=== PATIENT | female | born 1950 | race Caucasian/White ===

== ENCOUNTER → 2020-03-19 13:44 | Outpatient (CLI) | payer OTHER, SELFPAY ==
--- NOTE | ~2020-03-19 | MM_ITS ---
EXAMINATION: MM screening [facility] BI w tracee HISTORY: Screening mammogram TECHNIQUE: Craniocaudal and mediolateral oblique 3-D tomosynthesis images were obtained and synthetic 2-D images were generated. CAD analysis was submitted and interpreted. COMPARISON: No prior mammogram is available for comparison at this institution. BREAST PARENCHYMAL COMPOSITION: The breasts are heterogeneously dense, which may obscure small masses . FINDINGS: There is no evidence of suspicious mass, calcification, or architectural distortion to sugg est malignancy in either breast. There has been no suspicious interval change. IMPRESSION: 1. No mammographic evidence of malignancy. 2. Recommend routine screening mammography in one year. BI-RADS Category 2: Benign finding(s). Reviewed, dictated and finalized at location A.
== END ==
PROVIDERS: Visit Provider Obstetrics & Gynecology
DX: Z12.31 Encounter for screening mammogram for malignant neoplasm of breast (principal)
CPT/HCPCS: 77063; 77067

== ENCOUNTER → 2021-03-21 10:03 | Outpatient (CLI) | payer OTHER, SELFPAY ==
--- NOTE | ~2021-03-21 | MM_ITS ---
EXAMINATION: MM screening [facility] BI w tracee HISTORY: Screening mammogram TECHNIQUE: Craniocaudal and mediolateral oblique 3-D tomosynthesis images were obtained and synthetic 2-D images were generated. CAD analysis was submitted and interpreted. COMPARISON: 03/19/2020, 12/16/2018, 12/03/2017 BREAST PARENCHYMAL COMPOSITION: The breasts are heterogeneously dense, which may obscure small masses . FINDINGS: There is no evidence of suspicious mass, calcification, or architectural distortion to sugg est malignancy in either breast. There has been no suspicious interval change. IMPRESSION: 1. No mammographic evidence of malignancy. 2. Recommend routine screening mammography in one year. BI-RADS Category 1: Negative Reviewed, dictated and finalized at location A.
== END ==
PROVIDERS: PCP Internal Medicine; Visit Provider Obstetrics & Gynecology
DX: Z12.31 Encounter for screening mammogram for malignant neoplasm of breast (principal)
CPT/HCPCS: 77063; 77067

== ENCOUNTER → 2022-05-29 13:41 | Outpatient (CLI) | payer OTHER, SELFPAY ==
--- NOTE | ~2022-05-29 | MM_ITS ---
EXAMINATION: MM screening [facility] BI w tracee HISTORY: Screening mammogram TECHNIQUE: Craniocaudal and mediolateral oblique 3-D tomosynthesis images were obtained and synthetic 2-D images were generated. CAD analysis was submitted and interpreted. COMPARISON: 03/21/2021, 03/19/2020, 12/06/2018 BREAST PARENCHYMAL COMPOSITION: The breasts are heterogeneously dense, which may obscure small masses . FINDINGS: No suspicious mass, calcification, or architectural distortion are identified in either kavin ast to suggest malignancy. There has been no suspicious interval change. IMPRESSION: 1. No mammographic evidence of malignancy. 2. Recommend routine screening mammography in one year. BI-RADS Category 1: Negative Reviewed, dictated and finalized at location A.
== END ==
PROVIDERS: PCP Internal Medicine; Visit Provider Obstetrics & Gynecology
DX: Z12.31 Encounter for screening mammogram for malignant neoplasm of breast (principal)
CPT/HCPCS: 77063; 77067

== ENCOUNTER 2022-07-07 13:17 | Outpatient (CLI) | payer OTHER, SELFPAY ==
--- NOTE | ~2022-07-07 | DEXA_ITS ---
Bone Density Report Name: BRITTANIE SKINNER Age: 72 Sex: Female Ethnicity: White Date of : 1950 Indication: postmenopausal; screening for osteoporosis; height loss; prior fracture; asthma or emphysema; Referring Provider: ELVA, ROMEO Silva Study: Bone densitometry was performed. Exam Date: July 07, 2022 Accession number: [id number] Bone Density: Region BMD T-score Z-score Classification AP Spine(L1-L4) 0.879 -1.5 0.7 Osteopenia Femoral Neck (Left) 0.580 -2.4 -0.6 Osteopenia Total Hip (Left) 0.716 -1.9 -0.3 Osteopenia Femoral Neck (Right) 0.597 -2.3 -0.4 Osteopenia Total Hip (Right) 0.779 -1.3 0.2 Osteopenia Total Hip Mean 0.747 -1.6 -0.1 Osteopenia World Health Organization criteria for BMD impression classify patients as: Normal (T-score at or above -1.0), Osteopenia (T-score between -1.0 and -2.5), or Osteoporosis (T-score at or below -2.5). 10-year Fracture Risk: FRAX not reported because: Treated for osteoporosis Clinical Information Provided by Patient: Has had a low trauma fracture Is being treated for osteoporosis Has used the following medications: Boniva (i.e. ibandronate), Vitamin D Has the following medical conditions: Asthma or Emphysema Patient maximum height was 66 Menopause Age: 51 Drinks caffeinated beverages Onset of menses at age 14 Number of children 1 Impression: The patient has low bone mass, based on the Left Femoral Neck T-score. The patient has risk factors, including: previous fracture. Discussion: It is important to ask patients whether they are taking their medications and to encourage continued and appropriate compliance with their osteoporosis therapies to reduce fracture risk. It is also important to review their risk factors and encourage appropriate calcium and vitamin D intakes, exercise, fall prevention and other lifestyle measures. Follow-Up: Consider a repeat BMD and Vertebral Fracture Assessment (VFA) exam in 2 years or sooner if medically necessary, to reassess this patient's status. Reported by: [facility] on 07/07/2022 1:46:00 PM. Reviewed, dictated and finalized at location ADebo ARREDONDO
== END 2022-07-07 13:18 | disposition home or self-care (01) ==
PROVIDERS: PCP Internal Medicine; Visit Provider Obstetrics & Gynecology
DX: Z78.0 Asymptomatic menopausal state (principal); M85.88 Other specified disorders of bone density and structure, other site; M85.852 Other specified disorders of bone density and structure, left thigh; M85.851 Other specified disorders of bone density and structure, right thigh
CPT/HCPCS: 77080

== ENCOUNTER → 2023-08-26 15:03 | Outpatient (CLI) | payer OTHER, SELFPAY ==
--- NOTE | ~2023-08-26 | MM_ITS ---
EXAMINATION: MM screening [facility] BI w tracee HISTORY: Screening mammogram TECHNIQUE: Craniocaudal and mediolateral oblique 3-D tomosynthesis images were obtained and synthetic 2-D images were generated. CAD analysis was submitted and interpreted. COMPARISON: 05/29/2022, 03/21/2021, 03/19/2020 BREAST PARENCHYMAL COMPOSITION: The breasts are heterogeneously dense, which may obscure small masses . FINDINGS: No suspicious mass, calcification, or architectural distortion are identified in either kavin ast to suggest malignancy. There has been no suspicious interval change. IMPRESSION: 1. No mammographic evidence of malignancy. 2. Recommend routine screening mammography in one year. BI-RADS Category 1: Negative Reviewed, dictated and finalized at location A. [employer]
== END ==
PROVIDERS: PCP Internal Medicine; Visit Provider Obstetrics & Gynecology
DX: Z12.31 Encounter for screening mammogram for malignant neoplasm of breast (principal)
CPT/HCPCS: 77063; 77067

== ENCOUNTER 2024-10-20 12:14 | Outpatient (CLI) | payer OTHER, SELFPAY ==
--- NOTE | ~2024-10-20 | DEXA_ITS ---
Bone Density Report Name: BRITTANIE SKINNER Age: 74 Sex: Female Ethnicity: White Date of : 1950 Indication: osteopenia; height loss; prior fracture; cancer; asthma or emphysema; Referring Provider: ELVA, ROMEO Silva Study: Bone densitometry was performed. Exam Date: October 20, 2024 Accession number: [id number] Bone Density: Region BMD T-score Z-score Classification AP Spine(L1-L4) 0.801 -2.2 0.1 Osteopenia Femoral Neck (Left) 0.522 -2.9 -0.9 Osteoporosis Total Hip (Left) 0.667 -2.3 -0.6 Osteopenia Femoral Neck (Right) 0.570 -2.5 -0.5 Osteoporosis Total Hip (Right) 0.714 -1.9 -0.2 Osteopenia Total Hip Mean 0.691 -2.1 -0.4 Osteopenia World Health Organization criteria for BMD impression classify patients as: Normal (T-score at or above -1.0), Osteopenia (T-score between -1.0 and -2.5), or Osteoporosis (T-score at or below -2.5). 10-year Fracture Risk: FRAX not reported because: Some T-score for Spine Total or Hip Total or Femoral Neck at or below -2.5 Previous Exams: Region Exam Age BMD T-score BMD Change BMD Change Date g/cm2 vs Baseline vs Previous AP Spine (L1-L4) 10/20/2024 74 0.801 -2.2 -0.078 (-8.9%) -0.078 (-8.9%) 07/07/2022 72 0.879 -1.5 Total Hip(Left) 10/20/2024 74 0.667 -2.3 -0.049 (-6.9%) -0.049 (-6.9%) 07/07/2022 72 0.716 -1.9 Total Hip(Right) 10/20/2024 74 0.714 -1.9 -0.064 (-8.3%) -0.064 (-8.3%) 07/07/2022 72 0.779 -1.3 *Denotes significance at 95% confidence level, LSC for AP Spine = 0.022 g/cm2, LSC for Total Hip = 0.027 g/cm2 Clinical Information Provided by Patient: Has had a low trauma fracture Has used the following medications: Boniva (i.e. ibandronate), Vitamin D Has the following medical conditions: Asthma or Emphysema, Cancer Patient maximum height was 66 Menopause Age: 51 Drinks caffeinated beverages Onset of menses at age 14 Number of children 1 Impression: The patient has established osteoporosis, based on the Left Femoral Neck T-score and the existence of a prior fracture. The patient has risk factors, including: previous fracture. The BMD for the AP Spine (L1-L4) decreased, changing by -8.9% since the last DXA exam. The BMD for the Total Hip(Left) decreased, changing by -6.9% since the last DXA exam. The BMD for the Total Hip(Right) decreased, changing by -8.3% since the last DXA exam. Discussion: HIGH RISK OF FRACTURE. BONE DENSITY IS UNDESIRABLY LOW AT ONE OR MORE SKELETAL SITES, CONSISTENT WITH POSTMENOPAUSAL OSTEOPOROSIS. This patient's lowest T-score, in a patient who has previously fractured, meets the World Health Organization's (WHO) criteria for severe osteoporosis. In untreated patients, the risk of osteoporotic fracture increases approximately two-fold for each 1.0 SD decrease in T-score. Low bone density is not the only risk factor for fracture; also consider factors such as patient's age, frailty or poor health, risk of falling, risk of injury, previous osteoporotic fracture, family history of osteoporosis, cigarette smoking, low body weight, etc. Not everyone with low bone mineral density has osteoporosis; osteomalacia and other metabolic bone disorders should also be considered. Patients who have osteoporosis should be evaluated for specific diseases and conditions (secondary causes) that may cause or contribute to bone loss. The [place] Association of Clinical Endocrinologists (AACE) and National Osteoporosis Foundation (NOF) recommend pharmacologic intervention for all postmenopausal women whose T-score is in this range. The patient should follow a healthful lifestyle (good nutrition with adequate calcium and vitamin D, and appropriate weight-bearing exercise). Follow-Up: Consider a repeat BMD and Vertebral Fracture Assessment (VFA) exam in 2 years or sooner if medically necessary, to reassess this patient's status. Reported by: CASSIUS on 10/20/2024 12:46:00 PM. Reviewed, dictated and finalized at location ADebo ARREDONDO
--- OUTSIDE RECORDS SUMMARY | 2024-10-20 12:44 | XMS_ITS | Continuity of Care Document ---
Author Organization [employer] Address [address] [place] [address] Phone Care Team Providers Care Sales Order Coordinator Name Role Phone Smitha Lockhart DO Unavailable Unavailable Allergies, Adverse Reactions, Alerts Substance Reaction Status Criticality No Known Allergies Active No Inform ation Medications Medication Instructions Dosage Effective Dates (start - stop) Status Comments CARVEDILOL 12.5 MG TABLET TAKE 1 TABLET BY MOUTH TWICE A DAY WITH FOOD - Active LOSARTAN POTASSIUM 100 MG TAB TAKE 1 TABLET BY MOUTH EVERY DAY - Active FLUTICASONE PROP 50 MCG SPRAY SPRAY 1 BY INTRANASAL ROUTE EVERY DAY IN EACH NOSTRIL TWICE DAILY NEEDED - Active azelastine 137 mcg (0.1 %) nasal spray spray 1 spray by intranasal route 2 times every day in each nostril 1 spray - Active pantoprazole 40 mg tablet,delayed release TAKE 1 TABLET BY MOUTH twice daily - Active ATORVASTATIN 20 MG TABLET TAKE 1 TABLET BY MOUTH EVERY DAY IN THE EVENING - Active Trelegy Ellipta 200 mcg-62.5 mcg-25 mcg powder for inhalation inhale 1 puff by inhalation route every day at the same time each day 1.00 puff - Active aspirin 81 mg tablet,delayed release take 1 tablet by oral route every day 81 MG - Active AMLODIPINE BESYLATE 10 MG TAB TAKE 1 TABLET BY MOUTH EVERY DAY - Active Ventolin HFA 90 mcg/actuation aerosol inhaler TAKE 2 PUFFS BY MOUTH EVERY 4 TO 6 HOURS NEEDED - Active Vitamin D3 25 mcg (1,000 unit) tablet take 1 by Oral route once 1 - Active Procedures Procedure Date CBC, INC PLATELETS AND DIFFERENTIAL COMPREHEN METABOLIC PANEL CMP PARATHYROID HORMONE (PTH) VITAMIN D, 25-HYDROXY FALL RISK ASSESSMENT DOC'D PRES/ABSN URINE INCON ASSESS Pt inelig neg scrn depres ROUTINE VENIPUNCTURE [place] OFFICE [id number]-RES-[id number] BODY MASS INDEX DOCD SYST BP GE 130 - 139MM HG DIAST BP < 80 MM HG CBC, INC PLATELETS AND DIFFERENTIAL COMPREHEN METABOLIC PANEL CMP CREATINE KINASE, TOTAL (CPK,CK) 024 LIPID PANEL THYROID STIMULATION HORMONE(TSH) 2023 ROUTINE VENIPUNCTURE IL OFFICE [id number]-[id number] BODY MASS INDEX DOCD SYST BP LT 130 MM HG DIAST BP < 80 MM HG BASIC METABOLIC PANEL(BMP) ROUTINE VENIPUNCTURE IL CBC, INC PLATELETS AND DIFFERENTIAL COMPREHEN METABOLIC PANEL CMP 4 CREATINE KINASE, TOTAL (CPK,CK) 024 LIPID PANEL PARATHYROID HORMONE (PTH) RBC SED RATE, AUTOMATED THYROID STIMULATION HORMONE(TSH) 2023 VITAMIN D, 25-HYDROXY URINALYSIS, DIPSTICK (UA) - Office Lab J ROUTINE VENIPUNCTURE IL OFFICE [id number]-[id number] BODY MASS INDEX DOCD SYST BP GE 130 - 139MM HG DIAST BP < 80 MM HG COVID-19, Amplified Probe Technique INFLUENZA DNA AMP PROBE OFFICE [id number] CBC, INC PLATELETS AND DIFFERENTIAL COMPREHEN METABOLIC PANEL CMP 3 CREATINE KINASE, TOTAL (CPK,CK) 023 LIPID PANEL PARATHYROID HORMONE (PTH) THYROID STIMULATION HORMONE(TSH) VITAMIN D, 25-HYDROXY FALL RISK ASSESSMENT DOC'D PRES/ABSN URINE INCON ASSESS Pt inelig neg scrn depres URINALYSIS, DIPSTICK (UA) - Office Lab D ROUTINE VENIPUNCTURE IL OFFICE [id number]-[id number] BODY MASS INDEX DOCD SYST BP LT 130 MM HG DIAST BP < 80 MM HG PNEUMOVAX ADM MEDICARE Pneumococcal Conjugate Vaccine (PCV20) D CBC, INC PLATELETS AND DIFFERENTIAL COMPREHEN METABOLIC PANEL CMP 3 CREATINE KINASE, TOTAL (CPK,CK) 023 LIPID PANEL PARATHYROID HORMONE (PTH) THYROID STIMULATION HORMONE(TSH) 2022 VITAMIN D, 25-HYDROXY ROUTINE VENIPUNCTURE IL OFFICE [id number]-[id number]-[id number] BODY MASS INDEX DOCD SYST BP LT 130 MM HG DIAST BP < 80 MM HG COVID-19, Amplified Probe Technique INFLUENZA, RAPID INFLUENZA B, RAPID - OFFICE LAB 022 Pt inelig neg scrn depres CBC, INC PLATELETS AND DIFFERENTIAL COMPREHEN METABOLIC PANEL CMP 2 LIPID PANEL THYROID STIMULATION HORMONE(TSH) 2021 VITAMIN D, 25-HYDROXY ROUTINE VENIPUNCTURE OFFICE [id number]-[id number] BODY MASS INDEX DOCD SYST BP LT 130 MM HG DIAST BP < 80 MM HG FORM CHARGE CBC, INC PLATELETS AND DIFFERENTIAL COMPREHEN METABOLIC PANEL CMP LIPID PANEL PARATHYROID HORMONE (PTH) THYROID STIMULATION HORMONE(TSH) 2021 URINALYSIS, REFLEX (UA) VITAMIN D, 25-HYDROXY ROUTINE VENIPUNCTURE OFFICE AMWHA-[id number]-[id number] BODY MASS INDEX DOCD SYST BP LT 130 MM HG DIAST BP < 80 MM HG OFFICE NUJON-EYM-MLUPMNDR BODY MASS INDEX [facility] INSTITUTED SYST BP LT 130 MM HG DIAST BP < 80 MM HG Pt inelig neg scrn donna OFFICE OYBMP-BWJ-[id number] BODY MASS INDEX [facility] INSTITUT[facility] SYST BP GE 130 - 139MM HG DIAST BP < 80 MM HG FORM CHARGE Pt inelig neg scrn depres CBC, INC PLATELETS AND DIFFERENTIAL COMPREHEN METABOLIC PANEL CMP THYROID STIMULATION HORMONE(TSH) 2020 ROUTINE VENIPUNCTURE Chest Xray, 2 Views PULSE OXIMETRY, MULTIPLE EKG (ELECTROCARDIOGRAM) OFFICE [id number] BODY MASS INDEX [facility] INSTIT[facility] SYST BP LT 130 MM HG DIAST BP < 80 MM HG Pt inelig neg scrn donna CBC, INC PLATELETS AND DIFFERENTIAL COMPREHEN METABOLIC PANEL CMP 1 LIPID PANEL THYROID STIMULATION HORMONE(TSH) 2020 VITAMIN D, 25-HYDROXY ROUTINE VENIPUNCTURE OFFICE [id number]-SDP-[id number] BODY MASS INDEX DOCD SYST BP GE 130 - 139MM HG DIAST BP < 80 MM HG Pt inelig neg scrn depres OFFICE QAVLE-LUO-VOKKPEVT BODY MASS INDEX DOCD SYST BP GE 130 - 139MM HG DIAST BP < 80 MM HG CBC, INC PLATELETS AND DIFFERENTIAL COMPREHEN METABOLIC PANEL [facility] 0 CREATINE KINASE, TOTAL (CPK,CK) 020 HEMOGLOBIN A1C HGA1C, GLYCO LIPID PANEL THYROID STIMULATION HORMONE(TSH) 2019 ROUTINE VENIPUNCTURE Admin influenza virus vac FLU VACC PRSV FREE INC ANTIG OFFICE [id number]-[id number] BODY MASS INDEX DOCD SYST BP GE 130 - 139MM HG DIAST BP < 80 MM HG FALL RISK ASSESSMENT DOC'D PRES/ABSN URINE INCON ASSESS CBC, INC PLATELETS AND DIFFERENTIAL COMPREHEN METABOLIC PANEL [facility] 0 CREATINE KINASE, TOTAL (CPK,CK) 020 LIPID PANEL PARATHYROID HORMONE (PTH) THYROID STIMULATION HORMONE(TSH) 2019 ROUTINE VENIPUNCTURE OFFICE [id number]-ABY-MGYGIJGC BODY MASS INDEX DOCD SYST BP LT 130 MM HG DIAST BP < 80 MM HG HEMOGLOBIN A1C HGA1C, GLYCO Admin influenza virus vac FLU VACC PRSV FREE INC ANTIG OFFICE [id number]-[id number] BODY MASS INDEX DOCD SYST BP GE 130 - 139MM HG DIAST BP < 80 MM HG Pt inelig neg scrn depres CBC, INC PLATELETS AND DIFFERENTIAL COMPREHEN METABOLIC PANEL CMP 9 THYROID STIMULATION HORMONE(TSH) 2018 ROUTINE VENIPUNCTURE OFFICE GNAVY-[id number]-[id number] BODY MASS INDEX DOCD SYST BP >= 140 MM HG6 IT DIAST BP < 80 MM HG Advance Directives Directive Yes / No Effective Date File Name No Information Encounters Encounter Description Practice Location Reason(s) For Visit Diagnoses Date Provider Providers Copied on Encounter [employer] [facility], [address], [place], [place], [address] , tel: [phone] [employer] [facility] No Information 5 Chantelle Bone. [address] [place], [place], [id number] , [place]. tel: [phone] [employer], [address], [place], [place], [address] , [place] tel: [phone] [facility] No Information 5 Yahaira Rose. [address], [id number] , [place]. tel: [phone] Referring Provider: Reji Barbosa, [facility] [place], [address]. tel:[phone] OFFICE ZTTZW[facility]AXI[facility]NR [facility] [address], [place], [place], [address] , [place] tel: [phone] [employer] [facility] 4 month (chief complaint)C hronic Conditions (chief complaint) Essential (primary) hypertensionChroni c obstructive pulmonary disease, unspecifiedChronic respiratory failure with hypoxiaAtheroscler osis of aortaGastro-esopha geal reflux disease without esophagitisOther nonthrombocytopeni c purpuraOther hyperparathyroidis mHyperlipidemia, unspecifiedAge-rel ated osteoporosis without current pathological fractureVitreous degeneration, bilateral 5 Familia Mendoza. [address] [place] [address], [address], [place]. tel: [phone] Mirlande Hylton.Refer ring Provider: Smitha Walton, [address] [place] [address], [address] . tel:[phone] [facility], [address], [place], [place], [address] , [place] tel: [phone] [facility] No Information 5 Chantelle Bone. [address] [place] [address], [id number] , [place]. tel: [phone] [facility], [address], [place], [place], [address] , [place] tel: [phone] [facility] No Information 5 Vaz Ignacia. [address] [place] [address], [id number] , [place]. tel: [phone] [facility], [address], [place], [place], [address] , [place] tel: [phone] [facility] No Information 4 [facility] [address] [place] [address], [address], [place]. tel: [phone] [facility], [address], [place], [place], [address] , [place] tel: [phone] [facility] No Information 4 Yahaira Salinasn. [address], [id number] , [place]. tel: [phone] Referring Provider: Smitha Walton, [address] [place] [address], [address] . tel:[phone] OFFICE MDRCK-MRO-SY [facility], [address], [place], [place], [address] , [place] tel: [phone] [facility] 3 month appt (chief complaint)C hronic Conditions (chief complaint) Chronic obstructive pulmonary disease, unspecifiedNicotin e dependence, cigarettes, in remissionAngina pectoris, unspecifiedGastro- esophageal reflux disease without esophagitis 4 Chantelle Bone. [address] [place] [address], [id number] , [place]. tel: [phone] Specialist : Mirlande Hylton, [place], [address]. tel:[phone] erring Provider: Smitha Walton, [address] [place] [address], [address] . tel:[phone] [facility], [address], [place], [place], [address] , tel: [phone] [facility] No Information 4 Chantelle Bone. [address] [place] [address], [id number] , [place]. tel: [phone] [facility], [address], [place], [place], [address] , [place] tel: [phone] [facility] No Information 4 Yahaira Salinasn. [address], [id number] , [place]. tel: [phone] Referring Provider: Smitha Walton, [address] [place] [address], [address] . tel:[phone] [facility], [address], [place], [place], [address] , [place] tel: [phone] [facility] Essential (primary) hypertensionAthero sclerosis of aorta 4 Chantelle Bone. [address] [place] [address], [id number] , [place]. tel: [phone] Referring Provider: Smitha Walton, [address] [place] [address], [address] . tel:[phone] [facility], [address], [place], [place], [address] , [place] tel: [phone] [facility] No Information 4 Yahaira Rose. [address] [address], [place], [place], [address] , [place]. tel: [phone] Referring Provider: Simtha Walton, [address] [place] [address], [address] . tel:[phone] OFFICE SQKES-OKU-RX [facility], [address], [place], [place], [address] , [place] tel: [phone] [facility] 6 month appt (chief complaint)c hronic conditions (chief complaint)C hronic Conditions (chief complaint) Chronic obstructive pulmonary disease, unspecifiedNicotin e dependence, cigarettes, in remissionGastro-es ophageal reflux disease without esophagitisChronic respiratory failure with hypoxiaOther hyperparathyroidis mAtherosclerosis of aortaOther nonthrombocytopeni c purpuraEssential (primary) hypertensionAngina pectoris, unspecifiedEncount er for screening for malignant neoplasm of colonLeukocytes in urine 4 Chantelle Bone. [address] [place] [address], [id number] , [place]. tel: [phone] Referring Provider: Smitha Walton, [address] [place] [address], [address] . tel:[phone] [facility], [address], [place], [place], [address] , [place] tel: [phone] [facility] No Information 4 Chantelle Bone. [address] [place] [address], [id number] , [place]. tel: [phone] [facility], [address], [place], [place], [address] , tel: [phone] [facility] chills and nasal drip (chief complaint) Nasal congestion 3 Milind Beth. [address] [place] [address], [id number] , . tel: [phone] Referring Provider: Smitha Walton, [address] [place] [address], [address] . tel:[phone] [facility], [address], [place], [place], [address] , [place] tel: [phone] [facility] No Information 3 Yahairarobert Salinasn. [address], [id number] , . tel: [phone] Referring Provider: Smitha Walton, [address] [place] [address], [address] . tel:[phone] OFFICE RRCVK-OYB-HI [facility], [address], [place], [place], [address] , tel: [phone] [facility] 6 month appt (chief complaint)C hronic Conditions (chief complaint) Gastro-esophageal reflux disease without esophagitisChronic respiratory failure with hypoxiaChronic obstructive pulmonary disease, unspecifiedNicotin e dependence, cigarettes, in remission 3 Chantelle Bone. [address] [place] [address], [id number] , [place]. tel: [phone] Referring Provider: Smitha Walton, [address] [place] [address], [address] . tel:[phone] [facility], [address], [place], [place], [address] , [place] tel: [phone] [facility] No Information 3 Chantelle Bone. [address] [place] [address], [id number] , [place]. tel: [phone] [facility], [address], [place], [place], [address] , tel: [phone] [facility] Cataract, unspecified cataract type, unspecified laterality 3 Chantelle Bone. [address] [place] [address], [id number] , [place]. tel: [phone] [facility], [address], [place], [place], [address] , tel: [phone] [facility] No Information 3 Yahaira Salinasn. [address] [address], [place], [place], [address] , . tel: [phone] Referring Provider: Smitha Walton, [address] [place] [address], [address] . tel:[phone] OFFICE SHJYY-QXC-JB [facility], [address], [place], [place], [address] , tel: [phone] [facility] Patient encounter (chief complaint)C hronic Conditions (chief complaint) Essential hypertensionChroni c obstructive pulmonary disease, unspecifiedChronic respiratory failure with hypoxiaAtheroscler osis of aortaOther hyperparathyroidis mOther nonthrombocytopeni c purpuraGastroesoph ageal reflux disease without esophagitis 3 Chantelle Bone. [address] [place] [address], [id number] , [place]. tel: [phone] Referring Provider: Smitha Walton, [address] [place] [address], [address] . tel:[phone] [facility], [address], [place], [place], [address] , tel: [phone] [facility] No Information 3 Chantelle Bone. [address] [place] [address], [id number] , [place]. tel: [phone] [facility], [address], [place], [place], [address] , tel: [phone] [facility] Patient encounter (chief complaint) Acute coughSinus drainage 2 Chantelle Bone. [address] [place] [address], [id number] , . tel: [phone] Referring Provider: Smitha Walton, [address] [place] [address], [place], [address] . tel:[phone] OFFICE RBKHU-YYM-YI [facility], [address], [place], [place], [address] , tel: [phone] [facility] Chronic Conditions (chief complaint) Body mass index [BMI] 25.0-25.9, adultHyperparathyr oidismHyperlipidem ia, unspecified hyperlipidemia typeEssential hypertensionChroni c obstructive pulmonary disease, unspecifiedChronic respiratory failure with hypoxiaPostmenopau sarah osteoporosis 2 Milind Beth. [address] [place] [address], [id number] , [place]. tel: [phone] Referring Provider: Smitha Walton, [address] [place] [address], [address] . tel:[phone] [facility], [address], [place], [place], [address] , tel: [phone] [facility] No Information 2 Chantelle Bone. [address] [place] [address], [id number] , [place]. tel: [phone] Referring Provider: Smitha Walton, [address] [place] [address], [address] . tel:[phone] OFFICE RLFPC-HND-EJ [facility], [address], [place], [place], [address] , tel: [phone] [facility] 3-4 month (chief complaint)C hronic Conditions (chief complaint) Body mass index [BMI] 25.0-25.9, adultHyperparathyr oidismEssential hypertensionChroni c obstructive pulmonary disease, unspecifiedChronic respiratory failure with hypoxiaHyperlipide gee, unspecified hyperlipidemia type 2 Familia Mendoza. [address] [place] [address], [place], [address], . tel: [phone] Referring Provider: Smitha Walton, [address] [place] [address], [place], [address] . tel:[phone] [facility]ICE [facility], [address], [place], [place], [address] , tel: [phone] [facility] Chronic Conditions (chief complaint) Essential hypertensionChroni c obstructive pulmonary disease, unspecifiedGastroe sophageal reflux disease without esophagitisAortic atherosclerosisHyp erlipidemia, unspecified hyperlipidemia typeHyperparathyro idismNicotine dependence, cigarettes, in remissionChronic respiratory failure with hypoxiaOther nonthrombocytopeni c purpuraBody mass index [BMI] 25.0-25.9, adult 2 Chantelle Bone. [address] [place] [address], [id number] , [place]. tel: [phone] Referring Provider: Smitha Walton, [address] [place] [address], [place], [address] . tel:[phone] OFFICE [facility]WH[facility], [address], [place], [place], [address] , tel: [phone] [facility] Chronic Conditions (chief complaint) Body mass index (BMI) 25.0-25.9, adultChronic obstructive pulmonary disease, unspecifiedEssenti al hypertension 1 Kaleigh العلي. [address] [place] [address], [id number] , [place]. tel: [phone] Referring Provider: Smitha Walton, [address] [place], [address] . tel:[phone] [facility], [address], [place], [place], [address] , tel: [phone] [facility] No Information 1 Chantelle Bone. [address] [place] [address], [id number] , . tel: [phone] Referring Provider: Smitha Walton, [address] [place] [address], [address] . tel:[phone] OFFICE QONPF-QQS-GE [facility], [address], [place], [place], [address] , tel: [phone] [facility] Chronic Conditions (chief complaint) Chronic obstructive pulmonary disease, unspecifiedNicotin e dependence, cigarettes, in remissionEssential (primary) hypertensionGastro -esophageal reflux disease without esophagitisOther chest painShortness of breathBody mass index (BMI) 25.0-25.9, adult 1 Chantelle Bone. [address] [place] [address], [id number] , . tel: [phone] Referring Provider: Smitha Walton, [address] [place] [address], [address] . tel:[phone] OFFICE XVKRV-WBE-ZP [facility], [address], [place], [place], [address] , tel: [phone] [facility] Chronic Conditions (chief complaint) Body mass index (BMI) 26.0-26.9, adultEssential hypertensionHyperl ipidemia, unspecified hyperlipidemia typeChronic obstructive pulmonary disease, unspecifiedHyperpa rathyroidismAortic atherosclerosisGas troesophageal reflux disease without esophagitis 1 Kaleigh العلي. [address] [place] [address], [id number] , . tel: [phone] Referring Provider: Smitha Walton, [address] [place] [address], [address] . tel: OFFICE AHJSZ-SEF-NW [facility], [address], [place], [place], [address] , tel: [phone] [facility] Chronic Conditions (chief complaint) Allergic rhinitis, unspecified seasonality, unspecified triggerChronic obstructive pulmonary disease, unspecifiedHyperli pidemia, unspecified hyperlipidemia typeEssential hypertensionShortn ess of breathBody mass index (BMI) 25.0-25.9, adult 0 Chantelle Bone. [address] [place] [address], [id number] , [place]. tel: [phone] Referring Provider: Smitha Walton, [address] [place] [address], [address] . tel: [facility], [address], [place], [place], [address] , tel: [phone] [facility] No Information Apr- 0 Chantelle Bone. [address] [place] [address], [id number] , [place]. tel: [phone] Referring Provider: Smitha Walton, [address] [place] [address], [address] . tel: OFFICE EAAZZ-QGF-PK [facility], [address], [place], [place], [address] , tel: [phone] [facility] Chronic Conditions (chief complaint) Chronic obstructive pulmonary disease, unspecifiedAllergi c rhinitis, unspecified seasonality, unspecified trigger Jean Claude- 0 Milind Beth. [address] [place] [address], [id number] , [place]. tel: [phone] Referring Provider: Smitha Walton, [address] [place] [address], [address] . tel: OFFICE BGSKX[facility]VAV[facility], [address], [place], [place], [address] , tel: [phone] [facility] Chronic Conditions (chief complaint) Aortic atherosclerosisChr onic obstructive pulmonary disease, unspecifiedEssenti al hypertensionSenile purpuraBody mass index (BMI) 25.0-25.9, adultHyperparathyr oidismHyperlipidem ia, unspecified hyperlipidemia typeIFG (impaired fasting glucose) 0 Familia Gaylin. [address] [place] [address], [place], [address], [place]. tel: [phone] Referring Provider: Smitha Walton, [address] [place] [address], [address] . tel:[phone] [facility], [address], [place], [place], [address] , tel: [phone] [facility] Neoplasm of uncertain behavior 0 Chantelle Bone. [address] [place] [address], [id number] , [place]. tel: [phone] [facility], [address], [place], [place], [address] , tel: [phone] [facility] Plantar fascial fibromatosis 9 Chantelle Bone. [address] [place] [address], [id number] , [place]. tel: [phone] OFFICE [facility], [address], [place], [place], [address] , tel: [phone] [facility] Chronic Conditions (chief complaint) Body mass index (BMI) 26.0-26.9, adultHypertension, unspecified typeGeneralized anxiety disorder 9 Kaleigh العلي. [address] [place] [address], [id number] , [place]. tel: [phone] Referring Provider: Smitha Walton, [address] [place] [address], [place], [address] . tel:[phone] OFFICE ZOQUQ-NPS-KL [facility], [address], [place], [place], [address] , tel: [phone] [facility] Chronic Conditions (chief complaint) COPD (chronic obstructive pulmonary disease) with chronic bronchitisUncontro lled hypertensionPlanta r fasciitis, bilateralPost-hazel pausal osteoporosisBody mass index (BMI) 26.0-26.9, adult Sep-0 9 Chantelle Hyatta. [address] [place] [address], [id number] , [place]. tel: [phone] Referring Provider: Smitha Walton, [address] [place] [address], [address] . tel:[phone] [facility], [address], [place], [place], [address] , tel: [phone] [facility] Screen for colon cancer 9 Chantellejorge Hyatta. [address] [place] [address], [id number] , [place]. tel: [phone] [facility], [address], [place], [place], [address] , [place] tel: [phone] [facility] Internal Medicine Age-related nuclear cataract, unspecified laterality 9 Chantelle Laura. [address] [place] [address], [id number] , [place]. tel: [phone] [facility], [address], [place], [place], [address] , [place] tel: [phone] [facility] Internal Medicine Pulmonary nodule 9 Chantelle Smitha. [address] [place] [address], [id number] , [place]. tel: [phone] [facility], [address], [place], [place], [address] , [place] tel: [phone] [facility] Internal Medicine COPD (chronic obstructive pulmonary disease) with chronic bronchitisPost-men opausal osteoporosisPulmon harsh nodule, leftTobacco dependence in remissionEssential hypertensionSenile purpuraAortic atherosclerosisSki n lesionArthralgia, unspecified jointBody mass index (BMI) 26.0-26.9, adult 6-201 9 [place] Laura. [address] [place] [address], [place], [place], [id number] , [place]. tel: [phone] Referring Provider: Smitha Walton, [address] [place] [address], [place], [address] . tel:[phone] [facility], [address], [place], [place], [address] , tel: [phone] [facility] Internal Medicine COPD (chronic obstructive pulmonary disease) with chronic bronchitisPost-men opausal osteoporosisPulmon harsh nodule, leftTobacco dependence in remission 8 Chantelle Bone. [address] [place] [address], [place], [place], [id number] , [place]. tel: [phone] Referring Provider: Smitha Walton, [address] [place] [address], [place], [address] . tel:[phone] [facility], [address], [place], [place], [address] , [place] tel: [phone] [facility] Internal Medicine Pulmonary nodule, left 8 Chantelle Bone. [address] [place] [address], [place], [place], [id number] , [place]. tel: [phone] [facility], [address], [place], [place], [address] , [place] tel: [phone] [facility] Internal Medicine Essential hypertensionBody mass index (BMI) 26.0-26.9, adult 2-201 8 Milind Beth. [address] [place] [address], [place], [place], [id number] , [place]. tel: [phone] Referring Provider: Smitha Walton, [address] [place] [address], [place], [address] . tel:[phone] [facility], [address], [place], [place], [address] , tel: [phone] [facility] Internal Medicine Body mass index (BMI) 26.0-26.9, adultCOPD (chronic obstructive pulmonary disease) with chronic bronchitisPulmonar y nodule, leftEssential hypertensionHistor y of basal cell cancerSenile purpuraImpaired fasting glucoseLeukocytes in urine 8 [facility]. [address] [place] [address], [place], [address], [place]. tel: [phone] Referring Provider: Smitha Walton, [address] [place] [address], [place], [address] . tel:[phone] [facility], [address], [place], [place], [address] , [place] tel: [phone] [facility] Internal Medicine Post-menopause 8 Chantelle Bone. [address] [place] [address], [place], [place], [id number] , [place]. tel: [phone] [facility], [address], [place], [place], [address] , [place] tel: [phone] [facility] Internal Medicine Aortic atherosclerosisCOP D (chronic obstructive pulmonary disease) with chronic bronchitisPulmonar y nodule, leftEssential hypertensionOsteop enia, unspecified location 8 [facility]. [address] [place] [address], [place], [address], [place]. tel: [phone] Referring Provider: Smitha Walton, [address] [place] [address], [place], [address] . tel:[phone] [facility], [address], [place], [place], [address] , [place] tel: [phone] [facility] Internal Medicine Essential hypertensionBody mass index (BMI) 25.0-25.9, adult Feb-2 3-201 8 Familia Mendoza. [address] [place] [address], [place], [address], [place]. tel: [phone] Referring Provider: Smitha Walton, [address] [place] [address], [place], [address] . tel:[phone] [facility], [address], [place], [place], [address] , tel: [phone] [facility] Internal Medicine COPD (chronic obstructive pulmonary disease) with chronic bronchitisHistory of basal cell cancerPulmonary nodule, leftTobacco dependence in remissionEssential hypertensionOsteop orosis screening 2 7 Chantelle Bone. [address] [place] [address], [place], [place], [address] , [place]. tel: [phone] Referring Provider: Smitha Walton, [address] [place] [address], [place], [address] . tel:[phone] [facility], [address], [place], [place], [address] , [place] tel: [phone] [facility] Internal Medicine Pulmonary nodule, left 8-201 7 Familia Mendoza. [address] [place] [address], [place], [address], [place]. tel: [phone] [facility], [address], [place], [place], [address] , [place] tel: [phone] [facility] Internal Medicine History of basal cell cancer 201 7 Chantelle Bone. [address] [place] [address], [place], [place], [address] , [place]. tel: [phone] [facility], [address], [place], [place], [address] , [place] tel: [phone] [facility] Internal Medicine COPD (chronic obstructive pulmonary disease) with chronic bronchitisTobacco dependence in remission 7-201 7 Chantellejorge Bone. [address] [place] [address], [place], [address] , [place]. tel: [phone] Referring Provider: Smitha Walton, [address] [place] [address], [address] . tel:[phone] [facility], [address], [place], [place], [address] , [place] tel: [phone] [facility] Internal Medicine History of pneumonia 2-201 7 Memphisjorge Bone. [address] [place] [address], [id number] , [place]. tel: [phone] [facility], [address], [place], [place], [address] , [place] tel: [phone] [facility] Internal Medicine COPD with exacerbation 7-201 7 Chantelle Bone. [address] [place] [address], [id number] , [place]. tel: [phone] [facility], [address], [place], [place], [address] , [place] tel: [phone] [facility] Internal Medicine COPD with exacerbation December-0 3-201 7 Chantelle Bone. [address] [place] [address], [id number] , [place]. tel: [phone] [facility], [address], [place], [place], [address] , [place] tel: [phone] [facility] Internal Medicine COPD with exacerbationTobacc o dependenceHistory of pneumoniaPulmonary noduleRenal massHyperglycemiaE ssential hypertensionScreen ing mammogram, encounter forPrediabetes 8201 7 [facility]. [address] [place] [address], [address], [place]. tel: [phone] Referring Provider: Smitha Walton, [address] [place] [address], [address] . tel:[phone] [facility], [address], [place], [place], [address] , [place] tel: [phone] [facility] Internal Medicine Chronic obstructive pulmonary disease, unspecified 7 Chantelle Bone. [address] [place] [address], [id number] , [place]. tel: [phone] [facility], [address], [place], [place], [address] , tel: [phone] [facility] Internal Medicine Chronic obstructive pulmonary disease, unspecified 7 Chantelle Bone. [address] [place] [address], [id number] , [place]. tel: [phone] [facility], [address], [place], [place], [address] , tel: [phone] [facility] History of basal cell cancer Chantelle Bone. [address] [place] [address], [id number] , [place]. tel: [phone] [facility], [address], [place], [place], [address] , tel: [phone] [facility] Tobacco dependence Chantelle Bone. [address] [place] [address], [id number] , [place]. tel: [phone] Referring Provider: Smitha Walton, [address] [place] [address], [address] . tel:[phone] [facility], [address], [place], [place], [address] , tel: [phone] [facility] COPD (chronic obstructive pulmonary disease) with chronic bronchitisAortic atherosclerosisTob acco dependence syndromeGeneralize d anxiety disorderEssential hypertensionHyperp arathyroidismShort ness of breath on exertion 7 Chantelle Bone. [address] [place] [address], [id number] , [place]. tel: [phone] Referring Provider: Smitha Walton, [address] [place] [address], [address] . tel: [facility], [address], [place], [place], [address] , [place] tel: [phone] [facility] Essential hypertensionGenera lized anxiety disorderCOPD (chronic obstructive pulmonary disease) with chronic bronchitisTobacco dependence syndromeAortic atherosclerosisEnc ounter for immunization 0201 6 Familia Mendoza. [address] [place] [address], [place], [address], [place]. tel: [phone] Referring Provider: Smitha Walton, [address] [place] [address], [address] . tel: [facility], [address], [place], [place], [address] , tel: [phone] [facility] Essential hypertension with goal blood pressure less than 130/80COPD (chronic obstructive pulmonary disease) with chronic bronchitisHyperpar athyroidismTobacco dependence syndrome 6 Chantelle Bone. [address] [place] [address], [place], [place], [address] , [place]. tel: [phone] Referring Provider: Smitha Walton, [address] [place] [address], [address] . tel: [facility], [address], [place], [place], [address] , [place] tel: [phone] [facility] Unspecified disorder of skin and subcutaneous tissue 6 Chantelle Bone. [address] [place] [address], [place], [place], [address] , [place]. tel: [phone] [facility], [address], [place], [place], [address] , [place] tel: [phone] [facility] Hypercalcemia 6 Chantelle Bone. [address] [place] [address], [place], [place], [address] , [place]. tel: [phone] [facility], [address], [place], [place], [address] , [place] tel: [phone] [facility] Essential hypertension with goal blood pressure less than 130/80 3 6 Chantelle Bone. [address] [place] [address], [id number] , . tel: [phone] Referring Provider: Smitha Walton, [address] [place] [address], [address] . tel:[phone] [facility], [address], [place], [place], [address] , tel: [phone] [facility] Essential hypertension with goal blood pressure less than 130/80COPD (chronic obstructive pulmonary disease) with chronic bronchitisWeight lossTobacco dependence syndrome 0 6 Chantelle Bone. [address] [place] [address], [id number] , . tel: [phone] Referring Provider: Smitha Walton, [address] [place] [address], [address] . tel:[phone] [facility], [address], [place], [place], [address] , tel: [phone] [facility] Essential hypertensionOsteop eniaGeneralized anxiety disorderTobacco dependence 5 Chantelle Bone. [address] [place] [address], [id number] , . tel: [phone] Referring Provider: Smitha Walton, [address] [place] [address], [address] . tel:[phone] Family History Family Member Type Diagnosis Age At Onset Sister Problem (finding) Family history unknown 67 Father Problem (finding) malignant neoplasm of l chino 86 Mother Problem (finding) Family history unknown 77 Mother Problem (finding) pulmonary emphysema 77 Brother Problem (finding) Myocardial infarction ( Cause Of ) 63 Brother Problem (finding) hypertension Sister Problem (finding) chronic obstructive kalee g disease 67 Immunizations Vaccine Date Status Comments Tdap administered Note: [facility] ; Marcia rce: Other Provider Pneumococcal conjugate PCV20 administered Source: New Immunization Record Fluzone Quad, split virus, 0.5mL dosage administered Note: [facility] ; Source: Certificate Fluzone High-Dose, high dose , preservative free administered Note: [facility] ; So urce: Other Provider Moderna (Bivalent Booster) COVID Vac, 50mgc/0.5 mL, 18+ years administered Note: [facility] ; So urce: Other Provider Moderna (Low Dose) COVID19 Vaccine, 0.25mL per dose, booster dose administered Note: [facility] ; So urce: Other Provider Moderna (Low Dose) COVID19 Vaccine, 0.25mL per dose, booster dose administered Note: [facility] ; S ource: Other Provider Fluzone High-Dose, high dose , preservative free administered Note: [facility] ; Source: Other Provider Moderna COVID19 Vaccine, 0.5mL per dose, 2 doses, administered 28 days apart administered [facility] ; Source: Other Provider Moderna COVID19 Vaccine, 0.5mL per dose, 2 doses, administered 28 days apart administered [facility]: [facility] ; Source: Certificate Fluzone High-Dose, high dose , preservative free administered Source: New Immuniza tion Record Fluzone High-Dose, high dose , preservative free administered Source: New Immuniza tion Record Fluzone High-Dose, high dose , preservative free administered Source: New Immuniza tion Record SHINGRIX (Zoster vaccine recombinant, adjuvanted) administered Note: [facility] ; Source: Other Provider Fluzone Quad , spli t virus, 0.5mL dosage administered Source: New Immuniza tion Record influenza, injectable, quadrivalent, (3 years or older) administered Source: New Immuniza tion Record Pneumococcal conjugate PCV 13 administere d Source: New Immunization Record pneumococcal polysaccharide vaccine, 23 valent not administered Source: Other Provid er Pneumococcal polysaccharide PPV23 administered Source: Other Provid er influenza, injectable, quadrivalent, (3 years or older) administered Note: [facility] ; Source: Other Provider Zoster administered Source: Other P rovider Pneumococcal polysaccharide PPV23 administered Source: Other Provid er Td (adult) preservative free administered Source: Other Provider Payers Payer name Insurance type Covered republican ID Authoriza tirogelio(s) [employer] MB [id number] [employer] MB [id number] [employer] MB [id number] [employer] MB [id number] [employer] MB [id number] [employer] MB [id number] [employer] MB [id number] Social History Type Description Quantity Date Captured Comments Sex Female Smoking Status No Information Gender Identity Female Chief Complaint And Reason For Visit No Information Reason For Referral Reason For Referral No Information Plan Of Treatment Date Type Action Status Goal Dietary manageme nt education, guidance, and counseling completed Goal Dietary manageme nt education, guidance, and counseling completed Goal Dietary manageme nt education, guidance, and counseling completed Goal Dietary manageme nt education, guidance, and counseling completed Goal Dietary manageme nt education, guidance, and counseling completed Goal Dietary manageme nt education, guidance, and counseling completed Goal Dietary manageme nt education, guidance, and counseling completed Goal Dietary manageme nt education, guidance, and counseling completed Goal Dietary manageme nt education, guidance, and counseling completed Goal Dietary manageme nt education, guidance, and counseling completed Referral Referred To: Susan Wood [address] [facility]
[address] [place], [phone] Ordered: Referrals: Gastroenterology. Susan Wood. Evaluation/diagnostic/treatment - Level 3 Appointment date/timeframe: 04/25/2024 ordered Referral Referred To: Concetta KLINE, [place], [phone] Ordered: Referrals: Cardiology. Mirlande Hylton MD. Evaluation/diagnostic/treatment - Level 3 Appointment date/timeframe: 04/25/2024 ordered Referral Referred To: Dr. Linus Calhoun Ordered: Referrals: Ophthalmology. Dr. Linus Calhoun. Evaluation/diagnostic/treatment - Level 3 Appointment date/timeframe: 09/02/2023 ordered Referral Referred To: Kenneth Jin MD [address] [place], [phone] Ordered: Referrals: Pulmonology. Kenneth Jin MD. Evaluation/diagnostic/treatment - Level 3 Appointment date/timeframe: 07/10/2021 ordered Referral Ordered: EKG (ELECTROCARDIOGRAM) ordered Referral Ordered: Chest Xray, 2 Views ordered Referral Referred To: Juan Ramon Lauren Ordered: Referrals: Podiatry. Juan Ramon Lauren. Location: [address] [place] [address]. Evaluation/diagnostic/treatment - Level 3 Appointment date/timeframe: 06/16/2019 ordered Referral Referred To: Leonidas KLINE, Juan Ramon [place] [address] [facility]. [address] [place], [phone] Ordered: Referrals: Podiatry. Leonidas KLINE, Juan Ramon [place]. Consult - Level 1 Appointment date/timeframe: 06/08/2019 ordered Referral Referred To: Isra Wood MD [address] [place], [phone] Ordered: Referrals: Gastroenterology. Isra Wood MD. Evaluation/diagnostic/treatment - Level 3 Appointment date/timeframe: 12/31/2018 ordered Appointment Faith Kohler [facility] History Of Present Illness Encounter Date Complaint History Of Prese nt Illness 4 month Here for 4 month follow up.no concerns or complaints Chronic Conditions *See Chronic Conditions HPI Chronic Conditions *See Chronic Conditions HPI 3 month appt pt due for:Florina rendon Dr. visits:Cardiology - OctColonoscopy - SepPulmonary - appt:Mammogram - [place] [facility] - JanCardiology - Jun 30Vaccinations due:TD/TDAP - pt denies recentRSV - pt states she had one at [facility] in [place] in 2022Flu - pt states she received at [facility] in [place] on AprOVID booster - Moderna - pt states she received at [facility] in [place] on Apr 2024Outstanding referrals:n/a-COPDpt denies increased cough, worsening shortness of breath, or increased sputum productionpt would like to discuss recent results from EGD/Colonoscopy. 6 month appt pt due for:Adv c are planning - pt will bring copy of LW/POAPFT - pt had one done in NovemberRec visits:Dr Francisco (Pulmonary) - about 6 month agoCataract surgery - October 01, left eye - October 11, right eyeDermatology - appt:Dr Francisco - pt unsure of dateVaccinations due:TDAP - pt denies recentRSV - pt believes she received at [facility] in [place] Outstanding referrals:n/a -COPDpt denies cough, worsening shortness of breath, or increased sputum production -GERDpt denies nausea, regurgitationpt reports about 1 month ago while exercising she experienced an episode of lightheadedness, and after her workout she states that her left arm just felt heavy . pt denies chest pain, palpitations, tingling/numbing sensation, jaw numbness. pt stated that it was the first time she has had something like this happened, and has not had any other episodes since. pt stated she took an aspirin when she got home, because she got scared . Chronic Conditions *See Chronic Conditions HPI chronic conditions *See Chronic Conditions HPI chills and nasal drip Pt. stated it started on Thursday with Nasal drip, On Thursday she got chills, very tired and nasal drip. Pt. stated she stay home yesterday just very tired. She does not really feel bad. Pt. was tested for Covid in the office and it was positive for Covid., pt. did take Airborne and she did start a z-matt that her daughter gave her she on day 2.The nurse practitioner Alka listened to her and it sounded okay. Shared decision making determined no need for antiviral.Steroid pack sent to the pharmacy. Discussed stopping azithromycin.Will send in refill of Flonase and azelastine will be sent to help with the nasal drainage.Discussed quarantining until this and then can be around others on Thursday but needs to wear a mask for 5 days. Patient stated understanding and will let us know if she feels worse. Chronic Conditions *See Chronic Conditions HPI 6 month appt -GERDpt reports intermittent episodes of regurgitation depending on what pt eats. pt reports well controlled w/ Pantoprazolept denies nausea pt due for:Fall risk/urinary incontinence information sent to pt's portalMammogram - [place] 2023 [facility] [place] [facility] visits:Dr Gallardo - NovOpthalmology - [facility] in [place] - 07/13/23[facility] appt:Dr Francisco - 09/01/2023[facility] - 06/15/2024[facility] - Aug 2023Vaccinations due:Pneumo - pt has not receivedTDAP - pt denies recentOutstanding referrals:Opthalmology - see aboveQuestions:No questions Patient encounter Chief complain t: 6 months follow up.[facility] Ibandronate 150mg pt, [facility]Pt. is seeing her Straightening Machine Feeder this afternoon routine check up Dr. Francisco Pulmonary 01/25/2023 Chronic Conditions *See Chronic Conditions HPI Patient encounter Chief complain t: Cough, headache, sinus drainage, scratchy throat since 07/08/22..Pt presented to office for flu and COVID testing. Both negative.Consulted with Ignacia LEAL who recommended pt continue Tylenol prn, stay well hydrated and call us with new or worsening symptoms. Pt verbalized understanding. Chronic Conditions *See Chronic Conditions HPI Chronic Conditions *See Chronic Conditions HPI 3-4 month Chronic Conditions *See Chronic Conditions HPI Chronic Conditions *See Chronic Conditions HPI Chronic Conditions *See Chronic Conditions HPI Chronic Conditions *See Chronic Conditions HPI Chronic Conditions *See Chronic Conditions HPI Chronic Conditions *See Chronic Conditions HPI Chronic Conditions *See Chronic Conditions HPI Chronic Conditions *See Chronic Conditions [facility] Chronic Conditions *See Chronic Conditions HPI Functional Status Date Functional Assessmen t No Information Instructions Date Instruction Additional Infor stephania This is related to y our osteoporosis. Levels checked. Will also check vitamin D. Related to Other hyperparathyroidism This is the bruising that you have. Keep her skin moisturized to help event skin tears. 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 Avoid eating late at night. Call if this worsens Related to Gastro-esophageal reflux disease without esophagitis Your bone density is scheduled for January.Please have Dr. Gallardo's office forward us the results. You may benefit from Prolia since you already took Boniva. Related to Age-related osteoporosis without current pathological fracture Keep a close eye on whether the floaters get worse or if you develop any new symptoms and follow with ophthalmology.Call with any questions or concernsLabs todayReturn in 6 months Related to Vitreous degeneration, bilateral Continue on current medication. Liver enzymes will be checked. Related to Hyperlipidemia, unspecified Continue using the oxygen as nee ded. Related to Chronic respiratory failure with hypoxia Continue on current inhalers and follow-up with pulmonary.Call if you develop any increased cough, sputum production or shortness of breath. Samples given Related to Chronic obstructive pulmonary disease, unspecified Your blood pressure is well-managed on current medication. No changes at this time Related to Essential (primary) hypertension Your cardiac workup was negative . Related to Atherosclerosis of aorta Fall Risk Prevention Disease process Urinary Incontinence ok to increase the p antoprazole to twice per day to help with the symptoms Related to Gastro-esophageal reflux disease without esophagitis keep your next follo w up with the cardiologistcontinue with the current medication Related to Angina pectoris, unspecified continue with the cu rrent inhalercall me if you feel you are using your rescue inhaler more often Related to Chronic obstructive pulmonary disease, unspecified keep up the great work on not sm oking Related to Nicotine dependence, cigarettes, in remission Disease process I am going to set up an appointment with the heart doctor at [place] Their office will call you to schedule the appointment Related to Angina pectoris, unspecified I would recommend th at you take a baby aspirin (81 mg) daily until you are seen by cardiology Related to Other nonthrombocytopenic purpura your blood pressure is stableno changes recommended Related to Essential (primary) hypertension This is hardening of the arteries of your heart found on previous imagingno chest pain. good bp control Related to Atherosclerosis of aorta you are due for an e ndoscopy I am going to send a referral to Dr. wood for a repeat colonoscopy as well as an upper scope Related to Gastro-esophageal reflux disease without esophagitis Continue to use oxygen as needed Related to Chronic respiratory failure with hypoxia levels will be check edcontinue with the vitamin D supplement Related to Other hyperparathyroidism keep up the good work on not smo saul! Related to Nicotine dependence, cigarettes, in remission Continue with the cu rrent inhaler regimen Related to Chronic obstructive pulmonary disease, unspecified Disease process keep up the great wo rk with not smoking! Related to Nicotine dependence, cigarettes, in remission keep scheduled follo w up with Dr. Randle of [facility] given Related to Chronic obstructive pulmonary disease, unspecified continue to use the oxygen if you need it Related to Chronic respiratory failure with hypoxia call me if you feel your breathing gets worse Related to Gastro-esophageal reflux disease without esophagitis Fall Risk Prevention Disease process Urinary Incontinence This is the bruising you have. 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 good bp control Related to Atherosclerosis of aorta levels will be check edcontinue with the vitamin D supplement Related to Other hyperparathyroidism continue with the oxygen as need ed Related to Chronic respiratory failure with hypoxia samples givenkeep sc heduled follow up with Pulmonary Related to Chronic obstructive pulmonary disease, unspecified your blood pressure is stableno changes recommended Related to Essential hypertension when you are due for your colonoscopy next year (2023) we will have Dr. 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 Goals: Your goal is to manage your medicine. Barriers: No barriers to goal achievement have been identified.Continue to monitor for cough, worsening shortness of breath, or increased sputum production.no change in meds Related to Chronic obstructive pulmonary disease, unspecified Disease process Giving encouragement to exercise Related to Body mass index (BMI) 25.0-25.9, adult Dietary management e ducation, guidance, and counseling Related to Body mass index (BMI) 25.0-25.9, adult we will check levels todayCall with any questions or concernscbc, cmp, lipids, TSH, intact, vitamin d, uareturn in 6 months, sooner if needed Related to Hyperlipidemia, unspecified hyperlipidemia type continue wearing the oxygen as n eeded Related to Chronic respiratory failure with hypoxia we will check this l evel is addition to your kidney function and vitamin d Related to Hyperparathyroidism Status: Meeting delbert tment plan goals. Goals: Your goal is to manage your medicine. Barriers: No barriers to goal achievement have been identified. 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 of medication like your daily inhaler and rescue inhaler Related to Chronic obstructive pulmonary disease, unspecified your blood pressure is well controlledno changes at this time Related to Essential hypertension Giving encouragement to exercise Related to Body mass index (BMI) 25.0-25.9, adult Dietary management e ducation, guidance, and counseling Related to Body mass index (BMI) 25.0-25.9, adult Disease process continue with the 2 liters of oxygen with activityreturn to me in 3-4 monthslabs at your next visitcall me with questions or concerns Related to Chronic respiratory failure with hypoxia This is the bruising you have. 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 continue on vitamin d supplementation Related to Hyperparathyroidism will check levels to daycontinue on your medicationheart healthy diet low fat low cholesterol Related to Hyperlipidemia, unspecified hyperlipidemia type This is hardening of the arteries of your heart found on previous imagingno chest pain. good bp control Related to Aortic atherosclerosis Continue inhalerscal l for samplescontinue incentive spirometerplease keep appointment with Dr Jin for further testingcontinue with the oxygen with activitycall if breathing worsens Status: Able to self-manage condition. Barriers: No barriers to goal achievement have been identified. Goals: Your goal is to identify and avoid factors that make your symptoms worse. Related to Chronic obstructive pulmonary disease, unspecified avoid fatty, greasy, spicy and acidic food/beveragesavoid late night eatingcontinue medication -pantoprazole 40mg sent Related to Gastroesophageal reflux disease without esophagitis BP stablecontinue cu rrent medicationsrefill amlodipinelimit salty foodreturn in 3-4 monthscall with any questionscontinue covid precautionsflu shot this fall Related to Essential hypertension Dietary management e ducation, guidance, and counseling Related to Body mass index (BMI) 25.0-25.9, adult Giving encouragement to exercise Related to Body mass index (BMI) 25.0-25.9, adult Disease process BP stablecontinue cu rrent medicationsrefill amlodipinelimit salty foodreturn in 3-4 monthscall with any questionscontinue covid precautionsflu shot this fall Related to Essential hypertension Continue inhalerscal l for samplescontinue incentive spirometerplease keep appointment with Dr Jin for further testingyou did not require oxygen based on the walking test last monthcall if breathing worsens Status: Able to self-manage condition. Barriers: No barriers to goal achievement have been identified. Goals: Your goal is to identify and avoid factors that make your symptoms worse. Related to Chronic obstructive pulmonary disease, unspecified Giving encouragement to exercise Related to Body mass index (BMI) 25.0-25.9, adult Disease process Dietary management e ducation, guidance, and counseling Related to Body mass index (BMI) 25.0-25.9, adult see above Related to Other chest pain see abovereturn to naomi juarez as scheduledcall me with questions or concerns Related to Shortness of breath Continue with the cu rrent medication for your acid reflux Related to Gastro-esophageal reflux disease without esophagitis blood pressure is stableno caballero es Related to Essential (primary) hypertension keep up the good work not smokin g Related to Nicotine dependence, cigarettes, in remission Status: Not meeting treatment plan goals. Goals: Your goal is to learn deep breathing exercises. No barriers to goal achievement have been identified.samples of inhalers givenchest xray donelabs done ekg doneand walking test done todayI will likely be referring you to pulmonary for further evaluation of your shortness of breath Related to Chronic obstructive pulmonary disease, unspecified Giving encouragement to exercise Related to Body mass index (BMI) 25.0-25.9, adult Dietary management e ducation, guidance, and counseling Related to Body mass index (BMI) 25.0-25.9, adult Disease process avoid fatty, greasy, spicy and acidic food/beveragesavoid late night eatingcontinue medication -pantoprazole 40mg sent Related to Gastroesophageal reflux disease without esophagitis will check levels to daycontinue on your medicationheart healthy diet low fat low cholesterol Related to Hyperlipidemia, unspecified hyperlipidemia type This is can be relat ed to low vitamin d and also the normal decline with kidney function.we will monitor this. continue on vitamin d supplementation Related to Hyperparathyroidism This is hardening of the arteries of your heart found on previous imagingno chest pain. good bp control Related to Aortic atherosclerosis Blood pressure is at treatment goal on current medicationsContinue current medicationsAvoid salty foodsexercise as tolerated Related to Essential hypertension Status: Able to self -manage condition. Goals: Your goal is to learn deep breathing exercises. No barriers to goal achievement have been identified.use the trelegy dailyuse the Proair was needed for shortness of breathif you feel short of breath then check your oxygen, if less than 92% call and let me knowreturn to me in 4-6 monthscall me with questions or concerns AVOID CROWDS - REMAIN 6 FEET APART FROM PEOPLE. WEAR A MASK. AVOID TOUCHING YOUR FACE. AVOID UNNECESSARY TRAVEL. WASH HANDS OFTEN. CALL WITH QUESTIONS/CONCERNS Related to Chronic obstructive pulmonary disease, unspecified Giving encouragement to exercise Related to Body mass index (BMI) 26.0-26.9, adult Giving encouragement to exercise Related to Body mass index (BMI) 26.0-26.9, adult Disease process Dietary management e ducation, guidance, and counseling Related to Body mass index (BMI) 26.0-26.9, adult Try to increase acti vity as toleratedcheck the oxygen level when you become short of breathif it worsens call and let me knowIf no better we will send you back to Cardiologycall me with questions or concerns Related to Shortness of breath BP stable Related to Essen tial hypertension Status: Able to self -manage condition. Goals: Your goal is to learn deep breathing exercises. No barriers to goal achievement have been identified.use the trelegy dailyuse the Proair was needed for shortness of breathif you feel short of breath then check your oxygenif less than 92% call and let me knowsamples givenreturn to me in 3 monthscall me with questions or concernscmp cbc lipids tsh to be checked Related to Chronic obstructive pulmonary disease, unspecified Continue your nasal sprays as prescribed.Flonase was sent to the pharmacy.Please call the office if symptoms worsen.As discussed, you can also try a daily antihistamine such as generic Claritin, Zyrtec, or Deya once a day if you feel like you would benefit Related to Allergic rhinitis, unspecified seasonality, unspecified trigger will check levels to daycontinue on your medication Related to Hyperlipidemia, unspecified hyperlipidemia type Disease process Dietary management e ducation, guidance, and counseling Related to Body mass index (BMI) 25.0-25.9, adult Giving encouragement to exercise Related to Body mass index (BMI) 25.0-25.9, adult Continue your nasal sprays as prescribed.Flonase was sent to the pharmacy.Please call the office if symptoms worsen.As discussed, you can also try a daily antihistamine such as generic Claritin, Zyrtec, or Deya once a day if you feel like you would benefit Related to Allergic rhinitis, unspecified seasonality, unspecified trigger You report improveme nt in your breathing since switching to Trelegy.Continue the inhaler daily as prescribed.Samples were provided today.Please call the office if you cannot afford the medication so we can assist with samples.Status: Able to self-manage condition. Goals: Your goal is to manage your medicine. Barriers: No barriers to goal achievement have been identified.Continue with social distancing.AVOID CROWDS AVOID TOUCHING YOUR FACE AVOID UNNECESSARY TRAVEL. WASH HANDS OFTEN. CALL WITH QUESTIONS/CONCERNS Please call the office with any issues, questions, or concerns prior to your next appointment.Follow up again in 6 months Related to Chronic obstructive pulmonary disease, unspecified Medication management will check levels to daycontinue on your medication Related to Hyperlipidemia, unspecified hyperlipidemia type This is can be relat ed to low vitamin d and also the normal decline with kidney function.we will monitor this. continue on vitamin d supplementationCall with any questions or concernscbc, cmp, lipids, TSH, intact PTH, todayreturn in 6 months Continue with social distancing.AVOID CROWDS AVOID TOUCHING YOUR FACE AVOID UNNECESSARY TRAVEL. WASH HANDS OFTEN. CALL WITH QUESTIONS/CONCERNS Related to Hyperparathyroidism BP stable Related to Essen tial hypertension I will start you on a new inhaler called trelegy.You will use this instead of anoro.It is 1 puff once a day. 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 Goals: Your goal is to manage your medicine. Barriers: No barriers to goal achievement have been identified. Related to Chronic obstructive pulmonary disease, unspecified This is hardening of the arteries of your heart found on previous imagingno chest pain. good bp control Related to Aortic atherosclerosis This is the bruising you have. this happens with age fall precautions reviewed Related to Senile purpura Dietary management e ducation, guidance, and counseling Related to Body mass index (BMI) 25.0-25.9, adult Fall Risk Prevention Urinary Incontinence Disease process Giving encouragement to exercise Related to Body mass index (BMI) 25.0-25.9, adult will change the alpr azolam to 0.25mg as neededyou take this so rarely will just send 10 tabletscall if it worsens Related to Generalized anxiety disorder Blood pressure is at treatment goal, on current diet and medication. amlodipine 5mg twice a dayPlease continue your current treatment.avoid salty foodexercise as toleratedflu shot todayreturn in 6 monthscall with questions/concerns Related to Hypertension, unspecified type Dietary management e ducation, guidance, and counseling Related to Body mass index (BMI) 26.0-26.9, adult Giving encouragement to exercise Related to Body mass index (BMI) 26.0-26.9, adult Disease process continue with the cu rrent medicationreturn in 2 weekscmp cbc tsh to be checkedcall me with questions or concerns Related to Post-menopausal osteoporosis we will get you set up to see a foot doctor to look into this further Related to Plantar fasciitis, bilateral your blood pressure is high todaywe are going to increase the 5 mg of Amlodipine to 10 mg of Amlodipine per day(take 2 daily)recheck in 2 weeks Related to Uncontrolled hypertension Status: Able to self -manage condition. Goals: Your goal is to learn deep breathing exercises.samples given Related to COPD (chronic obstructive pulmonary disease) with chronic bronchitis Disease process Disease process Giving encouragement to exercise Related to Body mass index (BMI) 26.0-26.9, adult Dietary management e ducation, guidance, and counseling Related to Body mass index (BMI) 26.0-26.9, adult Disease process Assessments Type Assessment Date No Information Patient Care Teams Name Effective Dates (start - stop) Status Members No Information
--- OUTSIDE RECORDS SUMMARY | 2024-10-20 12:44 | XMS_ITS | Clinical Summary ---
Author Organization [address] Address [address] [place] [address] Care Team Providers Care Refractory Specialist Name Role Phone Smitha Lockhart Primary Care Provider [phone] Allergies No known active allergies Medications amLODIPine (NORVASC) 10 mg tablet Take 1 tablet (10 mg total) by mouth 2 (two) times a day 3 03/06/2019 Active atorvastatin (LIPITOR) 20 mg tablet Take 1 tablet (20 mg total) by mouth nightly 3 03/06/2019 Active carvedilol (COREG) 12.5 mg tablet Take 1 tablet (12.5 mg total) by mouth 3 03/06/2019 Active losartan (COZAAR) 100 mg tablet Take 1 tablet (100 mg total) by mouth daily 3 03/06/2019 Active ALPRAZolam (XANAX) 0.25 mg tablet Take 1 tablet (0.25 mg total) by mouth daily as needed 0 04/25/2019 Active cholecalciferol (VITAMIN D-3) 400 unit capsule Take 1 tablet/capsu le (400 Units total) by mouth daily Active pantoprazole DR (PROTONIX) 40 mg EC tablet 05/15/2021 Active fluticasone/ume clidin/vilanter (TRELEGY ELLIPTA INHAL) Inhale Activ e albuterol HFA (PROVENTIL HFA,VENTOLIN HFA,PROAIR HFA) 90 mcg/actuation inhaler 06/09/2022 Active Active Problems Problem Noted Date Diagnosed Date COPD (chronic obstructive pulmonary disease) Encounters Date Type Department Care Team Description 08/27/2024 Orders Only [facility] Health Information Management [address] [place] [address] Sammy Gallardo MD from Last 3 Months Surgical History Surgery Date Site/Laterality Comments WRIST SURGERY Medical History Medical History Date Comments HTN (hypertension) Osteoporosis Basal cell carcinoma (BCC) in situ of skin Borderline high cholesterol Family History Medical History Relation Name Comments Arthritis Father Hypertension Father Lung cancer Father Heart disease Maternal Grandfather Heart disease Maternal Grandmother Arthritis Mother Hypertension Mother Pulmonary embolism Mother Heart disease Paternal Grandfather Heart disease Paternal Grandmother Breast cancer Neg Hx Ovarian cancer Neg Hx Relation Name Status Comments Father Maternal Grandfather Maternal Grandmother Mother Paternal Grandfather Paternal Grandmother Social History Tobacco Use Types Packs/Day Years Used Date Smoking Tobacco: Former Cigarettes 0.8 48 0 11/13/1968 - 11/13/2016 Alcohol Use Standard Drinks/Week Comments Not Currently 0 (1 standard drink = 0.6 oz pur e alcohol) AUDIT-C Answer Date Recorded Q1: How often do you have a drink containing alc ohol? 2-3 times a week 09/02/2021 Q2: How many drinks containi ng alcohol do you have on a typical day when you are drinking? 3 or 4 09/02/2021 Q3: How often do you have si x or more drinks on one occasion? 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2 kg (135 lb) 06/15/2024 9:28 AM RN TRANSITIONAL CARE Height 165.1 cm (5' 5 ) 06/15/2024 9:28 AM RN TRANSITIONAL CARE Body Mass Index 22.47 06/15/2024 9:28 AM RN TRANSITIONAL CARE Plan of Treatment Health Maintenance Due Date Last Done Comments Breast Cancer Screening-Mammogram 1951 Colon Cancer Screening-Colonoscopy 1950 Fall Risk Assessment 1950 Hepatitis C Screening 1950 Osteoporosis Screening-Bone Density Scan 1951 Hepatitis B Screening 1969 Lung Cancer Screening 2001 Pneumococcal vaccine 65+ (3 of 3 - PCV20 or PCV21) 04/22/2021 04/22/2016, 04/03/2015, 04/10/2014, Additional history exists Depression Screening 09/02/2022 09/02/2021, 09/02/19 22 Covid-19 Vaccine (6 - 2023-2 5 season) 2024 11/18/2021, 06/04/2021, 10/23/2020, Additional history exists Influenza Vaccine (#1) 2024 , 05/02/2020, 04/21/2019, Additional history exists DTaP/Tdap/Td Vaccine (2 - Td or Tdap) 05/29/2024 05/29/2014, 04/03/2014 Well Visit 65+ 06/15/2025 06/15/2024, 06/03, 06/11/2022, Additional history exists Zoster Vaccine Completed 06/22/2018, 04/03, 08/03/2014, Additional history exists Procedures Procedure Name Priority Date/Time Associated Diagnosis Comments SCAN - RADIOLOGY/IMAGING 08/27/2024 from Last 3 Months Results * SCAN - RADIOLOGY/IMAGING (08/27/2024) Anatomical Region Laterality Modality Other Sammy Gallardo MD Final R esult from Last 3 Months Insurance [id number] [place] [address] [facility] Care Teams Refractory Specialist Relationship Specialty Start Date End Date Smitha oLckhart DO PCP - General 11/25/18
--- OUTSIDE RECORDS SUMMARY | 2024-10-20 12:44 | XMS_ITS | Encounter Summary ---
Author Organization [facility] Care Team Providers Care Calendering Supervisor Name Role Phone Unknown, Notinfile Primary Care Provider Unavail able Smitha Lockhart DO Primary Care Provider [phone] Encounter Details Date Type Department Care Team (Latest Contact Info) Description 05/17/2015 Orders Only [facility] Provider, MD Charlee [address] [place] [id number] Social History Tobacco Use Types Packs/Day Years Used Date Smoking Tobacco: Never Assessed Comments Unknown Sex and Gender Information Value Date Recorded Sex Assigned at Not on file Legal Sex Female 12:27 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 us Historical Provider Final Res ult documented in this encounter Visit Diagnoses Not on filedocumented in this encounter Care Teams Calendering Supervisor Relationship Specialty Start Date End Date Unknown, Deidra PCP - General 05/14/18 11/24/18 Smitha Lockhart DO PCP - General 11/25/18 documented as of this encounter
--- OUTSIDE RECORDS SUMMARY | 2024-10-20 12:44 | XMS_ITS | Clinical Summary ---
Author Organization [facility] Address [address] [place] [address] Care Team Providers Care Crystal Calibrator Name Role Phone Smitha Lockhart DO Primary Care Provider [phone] Source Comments [facility],non-owned Affiliates and Associated Physician Practices is amultiple site organization consisting of ambulatory clinics and hospital sitesin [place], [place], [place] and [place]. This disclosure is being madepursuant to the Care Everywhere program and may not contain all information available regarding this patient. Last updated 18.[facility] Allergies No known active allergies Social History Tobacco Use Types Packs/Day Years Used Date Smoking Tobacco: Never Assessed Sex and Gender Information Value Date Recorded Sex Assigned at Not on file Gender Identity Not on file Sexual Orientation Not on file Plan of Treatment Health Maintenance Due Date Last Done Comments BONE DENSITY TESTING 1950 COLOGUARD (AGES 45-75) - COL ON CA SCREENING 1950 COLON MONITORING 1950 COLONOSCOPY - COLON CA SCREENING 1950 CT COLONOGRAPHY - COLON CA SCREENING 1950 Colorectal Cancer Screening 1950 FIT - COLON CA SCREENING 1950 FLEX SIG - COLON CA SCREENING 1950 LIPID TESTING 1950 MAMMOGRAM 1950 HEPATITIS C SCREENING 02/15/1969 DTAP/TDAP/TD VACCINES (1 - Tdap) 1970 PNEUMOCOCCAL VACCINE 50+ (1 of 1 - PCV) 2001 ZOSTER VACCINE (1 of 2) 2001 COVID-19 VACCINE ( - 2023-2 5 season) 2024 INFLUENZA VACCINE (#1) 2024 DEPRESSION SCREENING 08/03/2024 Respiratory Syncytial Virus (RSV) Vaccine Pt: or over 60 yrs (1 - 1-dose 75+ series) 2026 HEPATITIS B VACCINE Aged Out No longe r eligible based on patient's age to complete this topic HIB VACCINE Aged Out No longer eligi ble based on patient's age to complete this topic HPV VACCINE Aged Out No longer eligi ble based on patient's age to complete this topic MENINGOCOCCAL (Group B) VACC INE SHARED DECISION-MAKING Aged Out No longer eligibl e based on patient's age to complete this topic MENINGOCOCCAL GROUPS A/C/Y/W VACCINE Aged Out No longer eligible b ased on patient's age to complete this topic Care Teams Crystal Calibrator Relationship Specialty Start Date End Date Smitha Lockhart DO [address] [place] [phone] PCP - General Internal Medicine 05/05/17
--- OUTSIDE RECORDS SUMMARY | 2024-10-20 12:44 | XMS_ITS | Referral Summary ---
Author Organization [place] [id number] Address [address] [place] [address] Care Team Providers Care Youth Counselor Name Role Phone Smitha Lockhart Primary Care Provider [phone] Encounters Date Type Department Care Team Description 08/27/2024 [facility] [address] [place] [address] Sammy Gallardo MD from Last 3 Months Allergies No known active allergies Medications amLODIPine [...] Diagnosed Date COPD (chronic obstructive pulmonary disease) Social History Tobacco Use Types Packs/Day Years [...] on file Legal Sex Female 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 Gender Identity Not on file Sexual Orientation Not on file Last Filed Vital Signs Vital Sign Reading Time Taken Comments Blood Pressure 142/60 06/15/2024 9:28 AM BLUEPRINT MAKER Pulse 72 09/02/2021 9:00 AM BLUEPRINT MAKER Temperature 36.6 C (97.8 F) 03/11/2019 9:16 AM CDT Respiratory Rate - - Oxygen Saturation 97% 09/02/2021 9:00 AM BLUEPRINT MAKER Inhaled Oxygen Concentration - - Weight 61.2 kg (135 lb) 06/15/2024 9:28 AM BLUEPRINT MAKER Height 165.1 cm (5' 5 ) 06/15/2024 9:28 AM BLUEPRINT MAKER Body Mass Index 22.47 06/15/2024 9:28 AM BLUEPRINT MAKER Plan of Treatment Not on file Procedures Procedure Name Priority Date/Time Associated Diagnosis Comments SCAN - RADIOLOGY/IMAGING 08/27/2024 from Last 3 Months Results * SCAN - RADIOLOGY/IMAGING (08/27/2024) Anatomical Region Laterality Modality Other Sammy Gallardo MD Final R esult from Last 3 Months Insurance [facility] Care Teams Youth Counselor Relationship Specialty Start Date End Date Smitha Lockhart DO PCP - General 11/25/18
--- OUTSIDE RECORDS SUMMARY | 2024-10-20 12:44 | XMS_ITS | Clinical Summary ---
Author Organization [facility] Address [facility] [place] [address] Care Team Providers Care Jewel Inspector Name Role Phone ChantelleSmitha Isabelle DALEY Primary Care Provider Mirlande Hylton MD Unavailable [phone] Allergies No known active allergies Medications carvedilol 12.5 MG tablet Take 1 tablet twice a day 08/25/2016 Active losartan 100 MG tablet Take 1 tablet daily 08/25/2016 Active amLODIPine 10 MG tablet Take 1 tablet (10 mg total) by mouth daily. 3 09/01/2016 Active atorvastatin 20 MG tablet 05/03/2021 Active pantoprazole EC 40 MG tablet 05/15/2021 Active vitamin D3, cholecalciferol , 10 MCG (400 UNIT) tablet Take 1 tablet (400 Units total) by mouth daily. Active azelastine 0.1 % nasal spray 1 spray 2 (two) times daily. Patient stated that she takes PRN 09/27/2021 Active fluticasone propionate 50 MCG/ACT nasal spray Patient stated that she is taking PRN 08/12/2021 Active aspirin EC (MINIPRIN LOW DOSE) 81 MG tablet Take 1 tablet (81 mg total) by mouth daily. 02/22/2024 Active albuterol sulfate HFA 108 (90 Base) MCG/ACT inhalerIndicati ons:Centrilobul ar emphysema (CMS/HCC HHS/HCC) TAKE 2 PUFFS BY MOUTH EVERY 4 TO 6 HOURS NEEDED 8 g 6 08/08/2024 Active Fluticasone-Ume clidin-Vilant (TRELEGY ELLIPTA) 200-62.5-25 MCG/ACT AEROSOL POWDER, BREATH ACTIVATEDIndica tions:Centrilob ular emphysema ([facility]) Inhale 1 puff into the lungs daily. Rinse and spit after use 30 each 11 09/09/2024 Active Active Problems Problem Noted Date Diagnosed Date Dyslipidemia 03/21/2024 COPD (chronic obstructive pu lmonary disease) ([facility]) 09/02/2021 Bradycardia 08/25/2016 Abnormal ECG 08/25/2016 SOB (shortness of breath) on exertion Essential hypertension Resolved Problems Problem Noted Date Diagnosed Date Resolved Date Hyperlipidemia 03/21/2024 06/21/2024 Chest discomfort 03/06/2021 06/21/2024 Encounters Date Type Department Care Team Description 09/09/2024 10:00 AM LAMP SHADE SEWER Office Visit [facility] Multispecialty Care - [address], [address] [place] [phone] Sebastian Francisco MD Follow Up 09/09/2024 Travel from Last 3 Months Immunizations Name Administration Dates Next Due Fluzone High Dose - >Age 65 (Prefilled Syringe) 04/18/2021,05/02/2020,04/21/2019 Influenza (Generic) 04/03/2015 Influenza Adult (Generic) 04/22/2023,,04/21/2019,2017,06/04/2017,04/22/2016,04/22/2016,0 05/01/2015,04/03/2015,04/10/2014, 013 MODERNA COVID-19 BIVALENT (1 2+), MRNA, LNP-S, PF 04/19/2022 MODERNA COVID-19 (12+) MRNA, LNP-S, PF, 100 MCG/ 0.5 ML DOSE 11/18/2021,06/04/2021,10/23/2020,2020,09/13/2020 Pneumococcal (Pneumovax 23) 04/03/2015, 4 Pneumococcal (Prevnar 13) 04/22/2016 Pneumococcal (Prevnar 20) 07/17/2023 Shingrix 06/22/2018,04/13/2018 Td (Tenivac) preservative free 04/03/2014 Td, Adsorbed, Preservative F ree, Adult Use, Lf Unspecified 04/03/2014 Tdap (Generic) 05/29/2014 Zoster (Zostavax) 13146 Unt/0.65Ml 08/03/2014, Family History Medical History Relation Comments Heart Attack Brother 1 Arthritis Brother 2 Hypertension Brother 2 Lung Cancer Father Heart Attack Maternal Grandfather Emphysema Mother Diabetes Paternal Grandfather COPD Sister Relation Status Comments Brother 1 (Age 63) Brother 2 Alive Father (Age 85) Maternal Grandfather Maternal Grandmother Mother (Age 77) Paternal Grandfather Paternal Grandmother (Age 90) Sister (Age 67) Social History Tobacco Use Types Packs/Day Years Used Date Smoking Tobacco: Former Cigarettes 0.8 40 1 977 - 2017 Smokeless Tobacco: Never Tobacco Cessation:Counseling Given: Yes Alcohol Use Standard Drinks/Week Comments Yes 0 (1 standard drink = 0.6 oz pur e alcohol) ocassional PHQ-2 Answer Date Recorded Patient Health Questionnaire-2 Score 0 02/24/2023 Comments No Sex and Gender Information Value Date Recorded Sex Assigned at Not on file Legal Sex Female 2:16 PM LAMP SHADE SEWER Gender Identity Female 10/04/2021 8:53 AM LAMP SHADE SEWER Sexual Orientation Not on file 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 Industry 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 Job End 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 Not on file Not on file 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 Not on file Not on file Not on file Last Filed Vital Signs Vital Sign Reading Time Taken Comments Blood Pressure 165/75 09/09/2024 9:44 AM LAMP SHADE SEWER Pulse 67 09/09/2024 9:29 AM LAMP SHADE SEWER Temperature 36.6 C (97.8 F) 09/09/2024 9:29 AM LAMP SHADE SEWER Respiratory Rate 18 09/09/2024 9:29 AM LAMP SHADE SEWER Oxygen Saturation 95% 09/09/2024 9:29 AM LAMP SHADE SEWER RA Inhaled Oxygen Concentration - - Weight 60.8 kg (134 lb) 09/09/2024 9:29 AM LAMP SHADE SEWER Height 165.1 cm (5' 5 ) 09/09/2024 9:29 AM LAMP SHADE SEWER Body Mass Index 22.3 09/09/2024 9:29 AM LAMP SHADE SEWER Plan of Treatment Upcoming Encounters Date Type Department Care Team (Late st Contact Info) Description 03/10/2025 11:20 AM CDT Office Visit [facility] Multispecialty Care - [facility] [address] [place] [address] Sebastian Francisco MD [address] [place] [address] Health Maintenance Due Date Last Done Comments Colorectal Cancer Screening Colonoscopy (10 Years) 1950 Hepatitis C 1969 Mammogram Screening 1991 RSV Immunization or 60+ Years (1 - Risk 60-74 years 1-dose series) 2011 Annual Medicare Wellness Visit 02/21/2016 Dexa Scan (General) 02/21/2016 Lung Cancer Screening 11/26/2019 11/25/2018 , 06/12/2018, 05/27/2017, Additional history exists COVID-19 Vaccine ( season) 2024 04/19/2022, 11/18/2021, 06/04/2021, Additional history exists Influenza Adult (#1) 2024 04/22/2023, 04/18/2021, 05/02/2020, Additional history exists DTaP, Tdap and Td Vaccines (2 - Td or Tdap) 05/29/2024 05/29/2014, 04/03/2014, 04/03/2014 PHQ-2 (Physician [place]) 08/03/2024 02/24/2023 Zoster Vaccines Completed 06/22/2018, 04/03, 08/03/2014, Additional history exists Pneumococcal Vaccine: 65+ Years Completed 07/17/2023, 04/22/2016, 04/03/2015, Additional history exists Meningococcal B Vaccine Aged Out No l onger eligible based on patient's age to complete this topic Meningococcal Vaccine Aged Out No marcin guanakito eligible based on patient's age to complete this topic RSV Immunizations Under 20 Months Aged Out No longer eligible based on patient's age to complete this topic Insurance [employer] Care Teams Jewel Inspector Relationship Specialty Start Date End Date Smitha Lockhart DO [address] [place] [phone] PCP - General INTERNAL MEDICINE 01/02/16 Mirlande Hylton MD [facility] [address] [place] [address] [place] Skip Tracer CARDIOVASCULAR DISEASE 08/18/16
--- OUTSIDE RECORDS SUMMARY | 2024-10-20 12:44 | XMS_ITS | Encounter Summary ---
Author Organization [facility] Address [address] [place] [address] Care Team Providers Care Addictions Counselor Assistant Name Role Phone Smitha Lockhart DO Primary Care Provider [phone] Mirlande Hylton MD Unavailable [phone] Encounter Details Date Type Department Care Team (Late Contact Info) Description 11/05/2016 Abstract [facility] AT [address] [id number] Karina Hidalgo MA Social History Tobacco Use Types Packs/Day Years Used Date Smoking Tobacco: Every Day Cigarettes 0.5 30 Smokeless Tobacco: Never Alcohol Use Standard Drinks/Week Comments Yes 0 (1 standard drink = 0.6 oz pur e alcohol) ocassional Comments Unknown Sex and Gender Information Value Date Recorded Sex Assigned at Not on file Legal Sex Female 2:16 PM BARGE LOADER Gender Identity Female 10/04/2021 8:53 AM BARGE LOADER Sexual Orientation Not on file Occupation Industry 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 Job 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 Not on file Not on file documented as of this encounter Plan of Treatment Upcoming Encounters Date Type Department Care Team (Late Contact Info) Description 03/10/2025 11:20 AM CDT Office Visit [facility] Medical Group Multispecialty Care - [address], [address] [place] [address] Sebastian Francisco MD [address] [place] [address] documented as of this encounter Procedures Procedure Name Priority Date/Time Associated Diagnosis Comments TSH (OUTSIDE LAB) Routine 06/01/2024 CBC (OUTSIDE LAB) Routine 06/01/2024 COMPREHENSIVE METABOLIC PANEL Routine 06/01/2024 LIPID PANEL Routine 06/01/2024 CK (CPK) Routine 06/01/2024 THYROID STIM HORMONE TSH Routine 08/18/2016 ESR (OUTSIDE LAB) Routine 08/08/2016 CBC (OUTSIDE LAB) Routine 08/08/2016 COMPREHENSIVE METABOLIC PANEL Routine 08/08/2016 LIPID PANEL Routine 08/08/2016 documented in this encounter Results * LIPID PANEL (06/01/2024) CHOLESTEROL 174 HDL 92 TRIGLYCERIDES 148 LDL (CALCULATED) 52 06/01/2024 us Default History Genericprovider LABORATORY Final Result * COMPREHENSIVE METABOLIC PANEL (06/01/2024) SODIUM S/P/B 138 POTASSIUM S/P/B 4.5 CO2 26 CHLORIDE S/P/B 101 GLUCOSE 124 mg/dL CALCIUM S/P/B 10.1 BUN 18 CREATININE S/P/B 0.95 0.5 - 1.0 GFR ESTIMATE 63 ALKALINE PHOSPHATASE S/P/B 89 ALT 17 AST 22 BILIRUBIN TOTAL S/P/B 0.4 ALBUMIN S/P/B 4.4 3.5 - 5.0 TOTAL PROTEIN S/P/B 7.0 GLOBULIN 2.6 06/01/2024 us Default History Genericprovider LABORATORY Final Result * TSH (OUTSIDE LAB) (06/01/2024) TSH 1.82 06/01/2024 us Default History Genericprovider LAB-OUTSIDE/ABST RACTED Final Result * CK (CPK) (06/01/2024) Pathologist [facility] CPK 36 06/01/2024 Default History Genericprovider LABORATORY Final Result * CBC (OUTSIDE LAB) (06/01/2024) Pathologist [facility] WBC 8.45 HGB 13.6 HCT 42.7 PLT 320 06/01/2024 us Default History Genericprovider LAB-OUTSIDE/ABST RACTED Final Result * THYROID STIM HORMONE, TSH (08/18/2016) Pathologist [facility] TSH 0.9 08/18/2016 us Doc [facility] Abstract LABORATORY Final Result * CBC (OUTSIDE LAB) (08/08/2016) Pathologist [facility] WBC 8.86 HGB 14.5 HCT 45.8 PLT 295 08/08/2016 us Doc [facility] Abstract LAB-OUTSIDE/ABSTRACTED Final Result * COMPREHENSIVE METABOLIC PANEL (08/08/2016) Pathologist [facility] SODIUM S/P/B 138 POTASSIUM S/P/B 4.3 CO2 30 CHLORIDE S/P/B 99 GLUCOSE 80 CALCIUM S/P/B 9.7 BUN 13 CREATININE S/P/B 0.76 0.5 - 1.0 EGFR AFR. AMER. >90 <=90 EGFR NON-AFR. AMER. 76 <=90 ALKALINE PHOSPHATASE S/P/B 87 ALT 10 AST 13 BILIRUBIN TOTAL S/P/B 0.3 ALBUMIN S/P/B 3.7 3.5 - 5.0 TOTAL PROTEIN S/P/B 6.6 GLOBULIN 2.9 08/08/2016 us Doc [facility] Abstract LABORATORY Final Result * LIPID PANEL (08/08/2016) CHOLESTEROL 183 HDL 56 TRIGLYCERIDES 208 LDL (CALCULATED) 85 08/08/2016 us Doc [facility] Abstract LABORATORY Final Result * ESR (OUTSIDE LAB) (08/08/2016) SED RATE 2 0 - 30 mm/hr 08/08/2016 us Doc [facility] Abstract LAB-OUTSIDE/ABSTRACTED Final Result documented in this encounter Visit Diagnoses Not on filedocumented in this encounter Care Teams Addictions Counselor Assistant Relationship Specialty Start Date End Date Smitha Lockhart DO [address] [place] [address] PCP - General INTERNAL MEDICINE 01/02/16 Mirlande Hylton MD [facility]. [address] [place] [address] [place] Switchboard Operator CARDIOVASCULAR DISEASE 08/18/16 documented as of this encounter
--- OUTSIDE RECORDS SUMMARY | 2024-10-20 12:44 | XMS_ITS | Continuity of Care Document ---
Author Organization [facility] Address [address] [place] [address] [place] [address] Phone Care Team Providers Care Marine Diesel Technician Name Role Phone Mtz OD, John Unavailable Unavailable Procedures Procedure Date Eye Exam & Treatment Refraction Advance Directives Directive Yes / No Effective Date File Name No Information Encounters Encounter Description Practice Location Reason(s) For Visit Diagnoses Date Provider Providers Copied on Encounter [facility], [address], [place], [place], [id number], [place] tel:[phone] [facility] No Information 0-200 9 Mtz OD John. [address] , [address], [place], [address], [place]. tel:[phone] Family History Family Member Type Diagnosis Age At Onset No Information Payers Payer name Insurance type Covered democrat ID Authoriza tion(s) [facility] Commercial CI [id number] [facility] Commercial BL [id number] Social History Type Description Quantity Date Captured Comments Sex Female Smoking Status No Information Chief Complaint And Reason For Visit No Information Reason For Referral Reason For Referral No Information History Of Present Illness Encounter Date Complaint History Of Prese nt Illness No Information Functional Status Date Functional Assessmen t No Information Instructions Date Instruction Additional Infor mation No Information Assessments Type Assessment Date No Information Patient Care Teams Name Effective Dates (start - stop) Status Members No Information
--- OUTSIDE RECORDS SUMMARY | 2024-10-20 12:44 | XMS_ITS | Encounter Summary ---
Author Organization [facility] Address [address] [place] [address] Care Team Providers Care Rn Corrections Name Role Phone BronxEdmaredgar Thomas DO Primary Care Provider [phone] Encounter Details Date Type Department Care Team (Late st Contact Info) Description 08/27/2024 Orders Only [facility] Health Information Management [address] [place] [address] Sammy Gallardo MD [facility] [address] [address] Social History Tobacco Use Types Packs/Day Years [...] on file Legal Sex Female 12:27 AM SUSTAINABILITY MANAGER Gender Identity Not on file Sexual Orientation Not on file documented as of this encounter Plan of Treatment Not on file documented as of this encounter Procedures Procedure Name Priority Date/Time Associated Diagnosis Comments SCAN - RADIOLOGY/IMAGING 08/27/2024 documented in this encounter Results * SCAN - RADIOLOGY/IMAGING (08/27/2024) Anatomical Region Laterality Modality Other Sammy Gallardo MD Final R esult documented in this encounter Visit Diagnoses Not on filedocumented in this encounter Care Teams Rn Corrections Relationship Specialty Start Date End Date Smitha Lockhart DO PCP - General 11/25/18 documented as of this encounter
== END 2024-10-20 12:15 | disposition home or self-care (01) ==
LOC: ANHIMG 12:15
PROVIDERS: PCP Internal Medicine; Visit Provider Obstetrics & Gynecology
DX: Z78.0 Asymptomatic menopausal state (principal); M85.88 Other specified disorders of bone density and structure, other site; M81.0 Age-related osteoporosis without current pathological fracture; M85.852 Other specified disorders of bone density and structure, left thigh; M85.851 Other specified disorders of bone density and structure, right thigh
CPT/HCPCS: 77080